=== PATIENT | female | born 1980 | race Caucasian/White ===

== ENCOUNTER 2021-04-20 11:52 | Emergency (ER) | payer BC ==
[2021-04-20] MEDS ORDERED: Ibuprofen 600 MG Tab PO ONE (14:55)
[2021-04-20] MEDS ORDERED: Ibuprofen 600 MG Tab ONE (15:54)
--- NOTE | 2021-04-20 16:47 | EDM.PDOC ---
ED HPI GENERAL MEDICAL PROBLEM - General Chief Complaint: Lower Extremity Injury/Pain Stated Complaint: LT FOOT INJURY Time Seen by Provider: 04/20/21 14:50 Source of Information: Reports: Patient. Denies: Old Records History Limitations: Reports: No Limitations - History of Present Illness INITIAL COMMENTS - FREE TEXT/NARRATIVE: 41 yo [place] missed [place] step about 10 am today injuring her L foot. Initially she also had lateral ankle pain, but that is better. No tx prior to arrival. Has pain even without weight bearing. Onset: Today, Sudden Onset Date: 04/20/21 Onset Time: 10:00 Duration: Hour(s):, Constant Location: Reports: Lower Extremity, Left Quality: Reports: Ache Severity: Mild (at rest) Improves with: Reports: Rest Worsens with: Reports: Movement (or weight bearing) Context: Reports: Trauma Associated Symptoms: Reports: No Other Symptoms Treatments FUSION ANALYST: Reports: Other (see below) (none) Left Ankle Pain Score (Numeric/FACES): 7 - Related Data Allergies Allergy/AdvReac Type Severity Reaction Status Date / Time Penicillins Allergy Rash Verified 04/20/21 14:54 procaine [From Novocain] Allergy Cannot Verified 04/20/21 14:56 Remember sulfamethoxazole Allergy Rash Verified 04/20/21 14:54 [From Bactrim] trimethoprim [From Bactrim] Allergy Rash Verified 04/20/21 14:54 Home Meds: Home Meds Escitalopram Oxalate [Lexapro] 20 mg PO DAILY 04/20/21 [History] Omeprazole 20 mg PO DAILY 04/20/21 [History] Topiramate [Topamax] 100 mg PO BID 04/20/21 [History] Vit D3 & K/Berberine HCl/Hops [Ostera] 1 tab PO DAILY 04/20/21 [History] buPROPion HCL [Wellbutrin SR] 150 mg PO DAILY 04/20/21 [History] Review of Systems - Review of Systems Review Of Systems: See Below Constitutional: Reports: No Symptoms Musculoskeletal: Reports: Foot Pain (left) Skin: Reports: Bruising (early bruising to the lateral foot. ) Neurological: Reports: No Symptoms ED EXAM, GENERAL - Physical Exam Exam: See Below Exam Limited By: No Limitations General Appearance: Alert, WD/WN, No Apparent Distress Extremities: Normal Inspection, No Pedal Edema, Limited Range of Motion (due to pain of the L foot), Other (tender with palpation to the dorsum of the L foot.). No: Normal Range of Motion, Non-Tender, Pedal Edema, Increased Warmth, Redness Neurological: Alert, Oriented, CN II-XII Intact, Normal Cognition, No Motor/Sensory Deficits Psychiatric: Normal Affect, Normal Mood Skin Exam: Warm, Dry, Intact, No Rash, Ecchymosis (just distal to the lateral malleolus. ) Course - Vital Signs Last Recorded V/S: Last Vital Signs Temp 36.6 C 04/20/21 14:49 Pulse 87 04/20/21 15:14 Resp 16 04/20/21 14:49 BP 112/76 04/20/21 15:14 Pulse Ox 99 04/20/21 15:14 - Orders/Labs/Meds Orders: Active Orders 24 hr Category Date Time Status Foot Comp Min 3V Lt [CR] Stat Exams 04/20/21 14:55 Ordered Ibuprofen [Motrin] Med 04/20/21 14:55 Once 600 mg PO ONETIME ONE - Radiology Interpretation Free Text/Narrative:: L ankle X-ray-no fx seen Departure - Departure Time of Disposition: 15:45 Disposition: Home, Self-Care 01 Condition: Fair Clinical Impression: Left foot pain - Discharge Information *PRESCRIPTION DRUG MONITORING PROGRAM REVIEWED*: No *COPY OF PRESCRIPTION DRUG MONITORING REPORT IN PATIENT MARICARMEN: No Referrals: PCP,None [Primary Care Provider] - Forms: ED Department Discharge Additional Instructions: Wear the ortho boot for support. Take ibuprofen and if needed acetaminophen OR your Percocet for pain relief. If not better in a week, then recheck with your provider along with your X-rays for recheck. Elevate to reduce any swelling. Sepsis Event Note (ED) - Evaluation Sepsis Screening Result: No Definite Risk - Focused Exam Vital Signs: Vital Signs Temp Pulse Resp BP Pulse Ox 04/20/21 15:14 87 112/76 99 04/20/21 14:49 36.6 C 58 L 16 118/77 99 - My Orders Last 24 Hours: My Active Orders 04/20/21 14:55 Foot Comp Min 3V Lt [CR] Stat Ibuprofen [Motrin] 600 mg PO ONETIME ONE - Assessment/Plan Last 24 Hours: My Active Orders 04/20/21 14:55 Foot Comp Min 3V Lt [CR] Stat Ibuprofen [Motrin] 600 mg PO ONETIME ONE
--- NOTE | 2021-04-21 11:13 | CR ---
Foot Comp Min 3V Lt CLINICAL HISTORY: Injury FINDINGS: There is a curvilinear lucency along the length of the talus extending into the talonavicular joint. This may represent some super imposition.. Nondisplaced fracture is not completely excluded. IMPRESSION: Ill-defined curvilinear lucency lengthwise through the mid talus anteriorly. Nondisplaced fracture is not excluded. If clinically relevant CT of the hindfoot should be considered
== END 2021-04-20 16:16 | disposition home or self-care (01) ==
LOC: JP.ED 11:52
DX: M79.672 Pain in left foot (principal); Z88.0 Allergy status to penicillin; Z88.1 Allergy status to other antibiotic agents; Z88.4 Allergy status to anesthetic agent; Z79.899 Other long term (current) drug therapy
CPT/HCPCS: 73630; 99283; A9270